=== PATIENT | female | born 1985 | race Caucasian/White ===

== ENCOUNTER → 2019-08-14 | Outpatient (CLI) | payer SELFPAY ==
--- NOTE | 2019-08-17 09:10 | RAD ---
EXAM DESCRIPTION: Wrist,Left 3 Views: CR/DR/XR CLINICAL HISTORY: 34 years Female PAIN IN LEFT WRIST COMPARISON: None. TECHNIQUE: 3 VIEWS AP. Lateral. Oblique. Left wrist FINDINGS: Transverse fracture of the meta-epiphysis of the distal left radius. Minimal impaction on the radial aspect. Vertical fracture line on the ulnar aspect of the radius with a fragment of the radius displaced displaced in the ulnar and dorsal direction. This fragment measures approximately 1.4 x 0.9 cm, with the fracture line extending into the radiolunate joint and opposing the radial surface of the lunate bone. The fragment is dorsal to the radial aspect of the ulna and encroaching on the distal radioulnar joint. No large loose bodies in the ulnar lunate radial scaphoid joints. Soft tissue swelling. IMPRESSION: Transverse fracture of the meta-epiphysis of the left radius with displacement on the ulnar aspect, and a longitudinal fracture extending into the radial lunate joint, opposing the radial surface of the lunate bone. Displaced fragment of the epiphyseal region of the ulnar aspect of the radius, on the dorsal aspect of the radial aspect of the ulna also involving the distal radioulnar joint. No large loose bodies in the radial carpal or ulnocarpal joint spaces. Electronically signed by: Arnaud Rodriguez MD 08/17/2019 9:09 AM RN POOL
== END ==
LOC: RAD 10:05
PROVIDERS: ATTEND Orthopaedic Surgery
DX: S52.322A Displaced transverse fracture of shaft of left radius, initial encounter for closed fracture (principal)